=== PATIENT | male | born 1985 | race Caucasian/White ===

== ENCOUNTER 2016-11-30 13:54 | Emergency (ER) | payer SELFPAY ==
[~2016-11-30] VITALS: Ht 172.7 cm; Wt 94.0 kg
[2016-11-30 13:57] VITALS: Ht 172.7 cm; Wt 94.0 kg
[2016-11-30] MEDS ORDERED: SODIUM CHLORIDE 0.9% 1000ML 1,000 ML IV STA (14:26)
[2016-11-30] MEDS ORDERED: ONDANSETRON INJ 2 MG/ML 2 ML VIAL IV STA (14:26)
[2016-11-30] MEDS ORDERED: MoRPHine SULFATE 4 MG/ML 1 ML CARP\\VIAL IV PRN (14:30)
--- NOTE | 2016-11-30 14:35 | EMERGENCY ROOM VISIT NOTE ---
History Report prepared by Jocelyn: Maria D Leiva Under the Supervision of: Dr. Ramón Barraza D.O. First contact with patient: 14:04 Chief Complaint: FLANK PAIN Stated Complaint: LEFT SIDE PAIN, NAUSEA History of Present Illness The patient is a 31 year old male who presents to the Emergency Room with complaints of sudden left flank pain that began two hours ago. He currently rates his discomfort as a 10/10 in severity. The patient states that his pain began suddenly and additionally associates nausea and vomiting with his symptoms. He additionally notes that he was diaphoretic when his pain began. The patient denies any urinary symptoms or history of kidney stones. He reports left leg numbness. The patient denies any rectal bleeding. He denies any active medical problems. The patient denies any alcohol or tobacco use. He denies any surgical history. Source of History: patient Onset: 2 hours ago Position: other (left flank) Symptom Intensity: 10/10 Timing: other (sudden) Associated Symptoms: + diaphoresis, + nausea, + vomiting, No urinary symptoms Review of Systems See HPI for pertinent positives & negatives. A total of 10 systems reviewed and were otherwise negative. Past Medical & Surgical Medical Problems: (1) Pneumonia Family History Cancer Diabetes mellitus Hypertension Social History Smoking Status: Never Smoker Smokeless Tobacco Use: No Alcohol Use: none Marital Status: single Housing Status: lives alone Occupation Status: employed Current/Historical Medications No Active Prescriptions or Reported Meds Allergies Coded Allergies: Acetaminophen (Unverified Allergy, Severe, "SWELLING,THROAT CLOSES/SHUTS" , 11/30/16) Physical Exam Vital Signs Date Time Temp Pulse Resp B/P (MAP) Pulse Ox O2 Delivery O2 Flow Rate FiO2 11/30/16 15:49 36.5 98 18 143/76 97 11/30/16 14:51 87 11/30/16 14:46 140/79 98 Room Air 11/30/16 13:57 36.5 91 18 164/94 100 Room Air Physical Exam GENERAL: Patient is awake, alert, very anxious appearing, and appears to have significant pain. EYES: The conjunctivae are clear. The pupils are round and reactive. EARS, NOSE, MOUTH AND THROAT: The nose is without any evidence of any deformity. Mucous membranes are moist tongue is midline NECK: The neck is nontender and supple. RESPIRATORY: Normal respiratory effort is noted there is no evidence of wheezing rhonchi or rales CARDIOVASCULAR: Regular rate and rhythm noted there no murmurs rubs or gallops normal S1 normal S2 GASTROINTESTINAL: The abdomen is mildly distended, but soft. No specific guarding or rigidity elicited. PELVIS: The Pelvis is stable. No tenderness to palpation is noted. BACK: Mild left CVA tenderness to percussion, no midline noted. Range of motion appeared intact. MUSCULOSKELETAL/EXTREMITIES: There is no evidence of gross deformity full range of motion is noted in the hips and shoulders SKIN: There is no obvious evidence of any rash. There are no petechiae, pallor or cyanosis noted. NEUROLOGIC: Patient is awake alert and oriented x3 strength is symmetric patellar reflexes are 2+ bilaterally Medical Decision & Procedures ER Provider Diagnostic Interpretation: CT results as stated below per my review and radiologist interpretation. ABDOMEN AND PELVIS CT WITHOUT CONTRAST CT DOSE: 504.39 mGy.cm HISTORY: Left abdominal pain pain left flank pain TECHNIQUE: Multiaxial CT images of the abdomen and pelvis were performed without contrast. COMPARISON STUDY: None. FINDINGS: Lung bases are grossly clear. Liver spleen and pancreas are unremarkable. Right kidney is negative for hydronephrosis. Left kidney shows slight fullness left renal collecting system and left renal pelvis. There is slight fullness left ureter as compared to the right. A well-defined obstructing calculus is not appreciated although is a 2 mm calcification the posterior aspect of the bladder. Possibly recently passed calculus is considered. Bowel pattern overall is nonobstructive. There is slight wall thickening of the sigmoid felt to be artifactual. IMPRESSION: 1. Slight fullness left renal collecting system and left ureter felt to be secondary to a recently passed calculus. 2. 2 mm calculus posterior aspect of the bladder. 3. Study is otherwise negative. Electronically signed by: Jovanny Lewis M.D. 11/30/2016 3:16 PM Dictated Date/Time: 11/30/2016 3:11 PM Laboratory Results 11/30/16 14:25 Red Blood Count 5.43, Mean Corpuscular Volume 86.9, Mean Corpuscular Hemoglobin 29.8, Mean Corpuscular Hemoglobin Concent 34.3, Mean Platelet Volume 9.2, Neutrophils (%) (Auto) 88.1, Lymphocytes (%) (Auto) 5.1, Monocytes (%) (Auto) 6.1, Eosinophils (%) (Auto) 0.2, Basophils (%) (Auto) 0.2, Neutrophils # (Auto) 10.49, Lymphocytes # (Auto) 0.61, Monocytes # (Auto) 0.72, Eosinophils # (Auto) 0.02, Basophils # (Auto) 0.02 11/30/16 14:25 Test 11/30/16 14:05 11/30/16 14:25 Urine Color DK YELLOW Urine Appearance TURBID (CLEAR) Urine pH 7.0 (4.5-7.5) Urine Specific [place] 1.032 (1.000-1.030) Urine Protein 1+ (NEG) Urine Glucose (UA) NEG (NEG) Urine Ketones TRACE (NEG) Urine Occult Blood TRACE (NEG) Urine Nitrite NEG (NEG) Urine Bilirubin NEG (NEG) Urine Urobilinogen NEG (NEG) Urine Leukocyte Esterase NEG (NEG) Urine WBC (Auto) 1-5 /hpf (0-5) Urine RBC (Auto) 0-4 /hpf (0-4) Urine Hyaline Casts (Auto) 1-5 /lpf (0-5) Urine Epithelial Cells (Auto) 20-30 /lpf (0-5) Urine Bacteria (Auto) NEG (NEG) White Blood Count 11.89 K/uL (4.8-10.8) Red Blood Count 5.43 M/uL (4.7-6.1) Hemoglobin 16.2 g/dL (14.0-18.0) Hematocrit 47.2 % (42-52) Mean Corpuscular Volume 86.9 fL (80-100) Mean Corpuscular Hemoglobin 29.8 pg (25-34) Mean Corpuscular Hemoglobin Concent 34.3 g/dl (32-36) Platelet Count 286 K/uL (130-400) Mean Platelet Volume 9.2 fL (7.4-10.4) Neutrophils (%) (Auto) 88.1 % Lymphocytes (%) (Auto) 5.1 % Monocytes (%) (Auto) 6.1 % Eosinophils (%) (Auto) 0.2 % Basophils (%) (Auto) 0.2 % Neutrophils # (Auto) 10.49 K/uL (1.4-6.5) Lymphocytes # (Auto) 0.61 K/uL (1.2-3.4) Monocytes # (Auto) 0.72 K/uL (0.11-0.59) Eosinophils # (Auto) 0.02 K/uL (0-0.5) Basophils # (Auto) 0.02 K/uL (0-0.2) RDW Standard Deviation 39.6 fL (36.4-46.3) RDW Coefficient of Variation 12.6 % (11.5-14.5) Immature Granulocyte % (Auto) 0.3 % Immature Granulocyte # (Auto) 0.03 K/uL (0.00-0.02) Anion Gap 9.0 mmol/L (3-11) Est Creatinine Clear Calc Drug Dose 77.9 ml/min Estimated GFR () 69.9 Estimated GFR (Non- 60.3 BUN/Creatinine Ratio 9.7 (10-20) Calcium Level 9.2 mg/dl (8.5-10.1) Total Bilirubin 0.6 mg/dl (0.2-1) Direct Bilirubin 0.1 mg/dl (0-0.2) Aspartate Amino Transf (AST/SGOT) 27 U/L (15-37) Alanine Aminotransferase (ALT/SGPT) 49 U/L (12-78) Alkaline Phosphatase 69 U/L (45-117) Total Protein 8.2 gm/dl (6.4-8.2) Albumin 4.8 gm/dl (3.4-5.0) Lipase 199 U/L (73-393) Laboratory results per my review. Medications Administered Medications (Trade) Dose Ordered Sig/Lisy Route Start Time Stop Time Status Last Admin Dose Admin Sodium Chloride 1,000 ml @ 999 mls/hr Q1H1M STAT IV 11/30/16 14:26 11/30/16 15:26 DC 11/30/16 14:39 999 MLS/HR Morphine Sulfate (MoRPHine SULFATE INJ) 4 mg Q15M PRN IV 11/30/16 14:30 11/30/16 16:23 DC 11/30/16 14:39 4 MG Ondansetron HCl (Zofran Inj) 4 mg NOW STAT IV 11/30/16 14:26 11/30/16 14:27 DC 11/30/16 14:38 4 MG ED Course 1424: The patient was evaluated in room B11B. A complete history and physical examination were performed. 1426: Ordered Zofran Inj 4 mg IV, Sodium Chloride 1000 ml @ 999 mls/hr IV, Morphine Sulfate 4 mg IV. 1531: I reevaluated the patient and he is resting comfortably. I discussed the exam findings with him and I discussed the treatment plan. He verbalized complete understanding and agreement. He is ready to go home. Medical Decision Differential diagnosis: Etiologies such as renal colic, appendicitis, diverticulitis, mesenteric ischemia, aortic pathology, infections, inflammatory bowel disease, PUD, biliary pathology, UTI, as well as others were entertained. Medication Reconciliation: I attest that I have personally reviewed the patient' s current medications list. Patient was found to have a slightly elevated blood pressure due to circumstances. I do not believe that the patient requires hypertension monitoring. The patient is a 31-year-old male who presented to the emergency department for an evaluation of acute left flank pain. The patient had flank pain which went to his left lower quadrant. The patient's CAT scan did show mild hydronephrosis and his creatinine was mildly elevated. CT was also consistent with a questionable recently passed kidney stone. The patient was treated with IV fluids IV pain medicine and IV antiemetics. On subsequent reevaluation he was feeling much better. I discussed the patient's condition with him. He was encouraged to rest and avoid any strenuous activity. He was also encouraged to drink plenty clear liquids and follow-up with his family doctor soon as possible. His pain was significantly improved so he was encouraged to continue using Motrin and Tylenol for pain and have repeat check with his family doctor and also to have his creatinine rechecked. He was also encouraged return to the emergency department immediately if symptoms change worsen or the need arises. Impression Primary Impression: Kidney stone Additional Impression: Renal colic Scribe Attestation The scribe's documentation has been prepared under my direction and personally reviewed by me in its entirety. I confirm that the note above accurately reflects all work, treatment, procedures, and medical decision making performed by me. Departure Information Dispostion Home / Self-Care Prescriptions No Active Prescriptions or Reported Meds Referrals Lexie Martinez M.D. (PCP) Forms HOME CARE DOCUMENTATION FORM, IMPORTANT VISIT INFORMATION, Work Instructions Patient Instructions Kidney Stones, [facility] Additional Instructions Call your family to schedule a follow-up appointment. Drink plenty clear liquids. Follow-up with your family this week for reevaluation. I would recommend a repeat of your laboratory studies including your electrolyte because your creatinine was mildly elevated in the emergency department today. This is likely due to the recently passed kidney stone. Problem Qualifiers
[2016-11-30 14:36] LABS: BASO % 0.2 %; BASO ABS # 0.02 K/uL (0-0.2); COMPLETE YES; EOS % 0.2 %; HEMATOCRIT 47.2 % (42-52); IG% 0.3 %; LYMPH % 5.1 %; LYMPH ABS # 0.61 K/uL (1.2-3.4); MEAN CELL VOLUME 86.9 fL (80-100); MEAN CORPUSCULAR HEMOGLOBIN 29.8 pg (25-34); MEAN CORPUSCULAR HGB CONC 34.3 g/dl (32-36); MEAN PLATELET VOLUME 9.2 fL (7.4-10.4); MONO % 6.1 %; NEUT % 88.1 %; PLATELET COUNT 286 K/uL (130-400); RED BLOOD COUNT 5.43 M/uL (4.7-6.1); WHITE BLOOD COUNT 11.89 K/uL (4.8-10.8)
[2016-11-30 14:55] LABS: BUN/CREATININE RATIO 9.7 (10-20); CALCIUM 9.2 mg/dl (8.5-10.1); CREATININE 1.5 mg/dl (0.60-1.40); POTASSIUM 3.7 mmol/L (3.5-5.1)
[2016-11-30 15:08] LABS: URINE APPEARANCE TURBID (CLEAR); URINE BILIRUBIN NEG (NEG); URINE COLOR DK YELLOW; URINE EPITHELIAL CELL AUTO 20-30 /lpf (0-5); URINE NITRITE NEG (NEG); URINE SPECIFIC GRAVITY 1.032 (1.000-1.030); UROBILINOGEN NEG (NEG)
[2016-11-30 15:15] LABS: MANUAL MICROSCOPIC REQUIRED? NO; REVIEW REQ? NO
--- NOTE | 2016-11-30 15:17 | DIAGNOSTIC IMAGING REPORT ---
ABDOMEN AND PELVIS CT WITHOUT CONTRAST CT DOSE: 504.39 mGy.cm HISTORY: Left abdominal pain pain left flank pain TECHNIQUE: Multiaxial CT images of the abdomen and pelvis were performed without contrast. COMPARISON STUDY: None. FINDINGS: Lung bases are grossly clear. Liver spleen and pancreas are unremarkable. Right kidney is negative for hydronephrosis. Left kidney shows slight fullness left renal collecting system and left renal pelvis. There is slight fullness left ureter as compared to the right. A well-defined obstructing calculus is not appreciated although is a 2 mm calcification the posterior aspect of the bladder. Possibly recently passed calculus is considered. Bowel pattern overall is nonobstructive. There is slight wall thickening of the sigmoid felt to be artifactual. IMPRESSION: 1. Slight fullness left renal collecting system and left ureter felt to be secondary to a recently passed calculus. 2. 2 mm calculus posterior aspect of the bladder. 3. Study is otherwise negative. Electronically signed by: Jovanny Lewis M.D. 11/30/2016 3:16 PM Dictated Date/Time: 11/30/2016 3:11 PM
[2016-11-30 15:49] VITALS: BP 143/76; PULSE 98; TEMP 36.5; O2SAT 97
== END 2016-11-30 15:49 | disposition home or self-care (01) ==
LOC: C.EDB 13:56
DX: N20.0 Calculus of kidney (principal); N21.0 Calculus in bladder; R10.9 Unspecified abdominal pain; R11.2 Nausea with vomiting, unspecified; Z87.442 Personal history of urinary calculi